=== PATIENT | male | born 1955 | race Caucasian/White ===

== ENCOUNTER 2017-01-08 10:04 | Outpatient (CLI) | payer BC ==
[2017-01-08 10:42] LABS: eGFR (African) > 60; eGFR (Non-African) > 60
== END 2017-01-08 10:05 ==
LOC: LAB 10:04
PROVIDERS: ATTEND Family Medicine
DX: E11.9 Type 2 diabetes mellitus without complications (principal); I10 Essential (primary) hypertension
CPT/HCPCS: 36415; 80053; 80061; 83036

== ENCOUNTER 2017-01-09 07:14 | Outpatient (CLI) | payer BC ==
--- NOTE | 2017-01-09 22:36 | Diagnostic Imaging Report ---
ALEXANDR CHACON~ [facility] [address] [facility].[address] [address] ~ ~ ~ ~ Report Submission Date: Jan 09, 2017 2:27:36 PM CDT Patient ~ Study Name: EVERT CARRENO ~ Date: Jan 09, 2017 9:18:22 AM CDT ~ Modality Type: CT\SR Gender: M ~ Description: CT ABD & PELVIS W/ CON : 51 ~ Institution: [facility] Physician: ALEXANDR CHACON ~ ~ ~ ~ CT of the abdomen and pelvis with contrast Clinical history: ~Diarrhea for 2-3 months. ~Rectal mass on physical exam. Contrast administered: ~92 ml of Omnipaque-300. Technique: ~CT of the abdomen and pelvis is performed with oral and intravenous administration of contrast. ~Sagittal and coronal reconstructions are performed by the technologist. Findings: ~The visualized lung bases are clear. ~Spleen demonstrates normal attenuation without focal defect. ~The liver is hypodense consistent with fatty infiltration. ~The gallbladder is normally distended. ~There is no pancreatic or adrenal abnormality. ~The kidneys demonstrate symmetric enhancement. ~ Vascular calcification is present in the abdominal aorta without evidence of aneurysm. ~The appendix is visualized and is within normal limits. ~Bladder is unremarkable. ~There is thickening of the rectal wall with stranding of the perirectal fat suggesting proctitis. ~There is increased stool in the more proximal colon but no significant distension to suggest obstruction. Impression: 1. ~Rectal wall thickening with stranding in the adjacent fat consistent with proctitis. 2. ~Fatty infiltration of the liver. 3. ~Vascular calcification. 4. ~Negative appendix. ~ Electronically signed on Jan 09, 2017 2:27:36 PM CDT by: Andrzej CARDENAS
== END 2017-01-09 07:15 ==
LOC: RAD 07:14
PROVIDERS: ATTEND Family Medicine
DX: K62.9 Disease of anus and rectum, unspecified (principal)
CPT/HCPCS: 74177; Q9966; A9698

== ENCOUNTER 2017-01-19 12:38 | Day surgery (SDC) | payer BC ==
--- NOTE | 2017-01-19 15:02 | GI Report ---
REFERRING PHYSICIAN: Dr. Axel Ambriz RELIABILITY TECHNICIAN: Lexx Altman MD PROCEDURE MEDICATION: Propofol as per anesthesia. INDICATIONS: This is a 61-year-old man who has had over several months some change in bowel habits and some blood in his stool and pain in the rectum. He has never had his colon looked at before. Family apparently has had colon cancer. He is referred for an evaluation. PROCEDURE PERFORMED: Colonoscopy. PROCEDURE: On rectal exam, the patient has a hard circumferential mass right down to the anal sphincter. An Olympus video colonoscope was advanced through the anal canal but he has got almost complete obstruction and the colonoscope could not pass the mass. We did take biopsies for pathology. RECOMMENDATIONS: 1. He needs a referral to colorectal surgeon. 2. He may need preoperative chemoradiation to shrink this mass pending the tumor type. 3. Again, incomplete colonoscopy because of obstruction in the rectum. cc: Dr. Axel CARDENAS
== END 2017-01-19 12:40 ==
LOC: OPSURG 12:38
PROVIDERS: ATTEND Internal Medicine Gastroenterology
DX: K62.89 Other specified diseases of anus and rectum (principal); C20 Malignant neoplasm of rectum
CPT/HCPCS: 45380; 88341; J2001; J2704; J7120; S1016

== ENCOUNTER 2017-11-07 11:35 | Emergency (ER) | payer BC, OTHER ==
[2017-11-07] MEDS ORDERED: ADENOSINE 6 MG/2 ML VIAL IVP ONE ×4 (11:38→11:52)
[2017-11-07] MEDS ORDERED: 0.9 % SODIUM CHLORIDE 1,000 ML IV ONE (11:38)
[2017-11-07] MEDS ORDERED: PROPRANOLOL HCL 20 MG TABLET PO SCH (12:00)
[2017-11-07] MEDS ORDERED: PROPRANOLOL HCL 20 MG TABLET PO ONE (12:04)
[2017-11-07 12:11] LABS: BASOPHILS % 0.4 (0.0-1.5); EOSINOPHILS % 0.5 % (0.0-6.8); MEAN CORPUSCULAR HEMOGLOBIN 28.5 pg (28.0-34.0); MEAN CORPUSCULAR VOLUME 91.3 fl (80.0-100.0); MONOCYTES % 7.9 % (0.0-11.0); NEUTROPHILS # 4.4 # k/uL (1.4-7.7)
[2017-11-07 12:18] LABS: eGFR (African) > 60; eGFR (Non-African) > 60
--- NOTE | 2017-11-07 13:05 | ED Physician Documentation ---
General Adult - HISTORIAN Historian: patient, child - HPI Stated Complaint: rapid heart rate Chief Complaint: General Adult Additional Information: pt in w/ SVT aT 223 BPM ONSET 2300HRS LAST NOCT HAS HAD BeFORE-ON rhymolol 225 bid-did not take it this am. converted w/ andnosine 12mg to sinus rhythm. dednies chest pain sob or other c/o. except arrythmia-but has to check carotid pulse to determine. Onset: days ago (0 last noct) Timing: still present Severity: mild Further Comments: yes (has stage 4 rectal cancer and odilon chemo tx) - ROS CONST: no problems EYES/ENT: denies: problems with vision CVS/RESP: none. denies: chest pain, shortness of breath, cough GI/: denies: abdominal pain MS/SKIN/LYMPH: none NEURO/PSYCH: denies: headache, fainting - PAST HX Past History: other (st 4 rectal cancer prev diabetes prev SVT) Allergies/Adverse Reactions: Allergies Allergy/AdvReac Type Severity Reaction Status Date / Time aspirin Allergy Verified 11/07/17 11:49 ibuprofen Allergy Verified 11/07/17 11:49 - SOCIAL HX Smoking History: non-smoker Alcohol Use: none Drug Use: none - FAMILY HX Family History: No - VITAL SIGNS Vital Signs: Vital Signs Temp Pulse Resp BP Pulse Ox 98.1 F 220 H 20 97/66 98 11/07/17 11:35 11/07/17 11:35 11/07/17 11:35 11/07/17 11:35 11/07/17 11:35 - REVIEWED ASSESSMENTS Nursing Assessment Reviewed: Yes Vitals Reviewed: Yes ED Results Lab/Radiology - Lab Results Lab Results: Lab Results 11/07/17 11/07/17 11/07/17 12:00 12:00 12:00 WBC 6.50 K/ul K/ul (4.00-12.00) RBC 3.91 M/ul M/ul (3.90-5.20) Hgb 11.1 g/dL L g/dL (12.0-18.0) Hct 35.8 % L % (37.0-53.0) MCV 91.3 fl fl (80.0-100.0) MCH 28.5 pg pg (28.0-34.0) MCHC 31.2 g/dL g/dL (30.0-36.0) RDW 17.0 % H % (11.3-14.3) Plt Count 171 K/mm3 K/mm3 (130-400) Neut % (Auto) 68.9 % % (39.0-79.0) Lymph % (Auto) 20.1 % % (16.0-50.0) [place] % (Auto) 7.9 % % (0.0-11.0) Eos % (Auto) 0.5 % % (0.0-6.8) Baso % (Auto) 0.4 (0.0-1.5) Neut # (Auto) 4.4 # k/uL # k/uL (1.4-7.7) Lymph # (Auto) 1.3 # k/uL # k/uL (0.6-4.0) [place] # (Auto) 0.5 # k/uL # k/uL (0.0-0.9) Eos # (Auto) 0.0 # k/uL # k/uL (0.0-0.6) Baso # (Auto) 0.0 # k/uL # k/uL (0.0-0.5) Reactive Lymphs % 2.2 % % (0.0-5.0) Reactive Lymphs # 0.2 # k/uL # k/uL (0.0-0.8) Sodium 140 mmol/L mmol/L (136-145) Potassium 4.1 mmol/L mmol/L (3.5-5.1) Chloride 97 mmol/L L mmol/L (98-107) Carbon Dioxide 27 mmol/L mmol/L (22-30) BUN 10 mg/dL mg/dL (9-20) Creatinine 1.00 mg/dL mg/dL (0.66-1.25) Estimated Creat Clear 81 Est GFR ( Amer) > 60 (60 - ) Est GFR (Non-Af Amer) > 60 (60 - ) Glucose 137 mg/dL H mg/dL (74-106) Calcium 9.4 mg/dL mg/dL (8.4-10.2) Total Bilirubin 0.6 mg/dL mg/dL (0.2-1.3) AST 29 U/L U/L (15-46) ALT 19 U/L U/L (13-69) Alkaline Phosphatase 93 U/L U/L (38-126) Troponin I 0.08 ng/mL H ng/mL (0.03-0.06) Total Protein 6.8 g/dL g/dL (6.3-8.2) Albumin 3.8 g/dL g/dL (3.5-5.0) - Orders Orders: ED Orders Category Date Time Status CBC/PLATELET/DIFF Routine Lab 11/07/17 12:00 Completed CMP Routine Lab 11/07/17 12:00 Completed TROPONIN I (cTnI) Stat Lab 11/07/17 12:00 Completed 0.9 % Sodium Chloride [Normal Saline] 1,000 ml Med 11/07/17 11:38 Discontinued IV .STK-MED Adenosine [Adenocard] Med 11/07/17 11:38 Discontinued 12 mg IVP .STK-MED ONE Adenosine [Adenocard] Med 11/07/17 11:52 Discontinued 12 mg IVP STAT ONE Adenosine [Adenocard] Med 11/07/17 11:42 Discontinued 6 mg IVP .STK-MED ONE Adenosine [Adenocard] Med 11/07/17 11:40 Discontinued 6 mg IVP STAT ONE Propranolol HCl [Inderal] Med 11/07/17 12:00 Ordered 20 mg PO DAILY Oxygen Daily Oxygen 11/07/17 12:00 Ordered EKG WITH COMPARISON Stat Ther 11/07/17 Stop Req EKG WITH COMPARISON Stat Ther 11/07/17 11:53 Ordered General Adult Physical Exam - PHYSICAL EXAM GENERAL APPEARANCE: no distress EENT: eye inspection normal NECK: normal inspection. No: carotid bruit RESPIRATORY: no resp distress, breath sounds normal CVS: tachycardia. No: reg rate & rhythm ABDOMEN: soft, non-tender SKIN: warm/dry, normal color. No: cyanosis, diaphoresis, jaundice, mottled EXTREMITIES: non-tender, normal range of motion, no evidence of injury, no edema NEURO: oriented X3, motor nml, sensation nml, mood/affect nml Discharge Clincal Impression: supra ventricular tachycardia, st 4 rectal cancer Referrals: Axel Ambriz MD [Primary Care Provider] - 2 Days Comments: svt converted w/ 12 mg adenosine o- pt rem asymptomatic-had sl rise in troponin- called DR MCCALL [facility] suggested no furthur tx till crys see cardiologists- continue RHYTHMOL et other meds. rec f/u w/ vice principal next 2-3 days-gave DR HAIRSTON phone no. had prev card but insurance req [facility] Condition: Good Disposition: 01 HOME, SELF-CARE Decision to Admit: NO Decision Time: 13:18
[2017-11-07 13:16] VITALS: BP 137/79
== END 2017-11-07 13:14 | disposition home or self-care (01) ==
LOC: ED 11:35
DX: I47.1 Supraventricular tachycardia (principal); C18.9 Malignant neoplasm of colon, unspecified; Z92.21 Personal history of antineoplastic chemotherapy
CPT/HCPCS: 80053; 84484; 85025; 93005; J0153; J7030; 96365; 96375; 96376; 99283; S1016

== ENCOUNTER 2018-01-31 12:20 | Emergency (ER) | payer BC, OTHER ==
[2018-01-31 12:38] VITALS: BP 127/67
--- NOTE | 2018-01-31 12:49 | ED Physician Documentation ---
Abdominal Pain - HISTORIAN Historian: patient - HPI Stated Complaint: Abdominal Pain Chief Complaint: Abdominal Pain Additonal Information: genl abd pain. 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 did not follow w/xs water. will eval use xtra mg citrate /water if no evid obstruction Onset: days ago (progressive past few) Duration: waxing, waning Timing: worse Context: denies: out of country travel, bad food, recent trauma Severity: moderate Quality: pain, cramping Associated Symptoms: denies: diarrhea, bloody stools, loss of appetite, chest pain Exacerbated by: food - ROS CONST: other (as above) GI/: constipation, dark urine. denies: black stools, bloody urine, bloody stools CVS/RESP: none MS/SKIN/LYMPH: none. denies: leg swelling, rash, swollen glands, recent injury NEURO/PSYCH: none - SOCIAL HX Smoking History: non-smoker Alcohol Use: none Drug Use: none - FAMILY HX Family History: no significant history - PAST HX Past History: other (colo/rectal cancer) Ischemic Bowel Risk Factors: none Other History: none (except wt loss from 210 to 160lbs) Surgeries/Procedures: other (has port) Home Medications: Ambulatory Orders Medication Instructions Recorded Citalopram Hydrobromide 20 mg PO DAILY 01/31/18 [Citalopram HBr] Gabapentin [Gabapentin] 100 mg pe PO TID 01/31/18 Morphine Sulfate [Morphabond ER] 60 mg PO Q12H 01/31/18 Morphine Sulfate [Morphine Sulfate] 30 mg PO Q4H PRN 01/31/18 Pantoprazole Sodium 40 mg PO DAILY 01/31/18 Propafenone HCl [Propafenone HCl 225 mg PO BID 01/31/18 ER] Tamsulosin HCl [Flomax] 0.4 mg PO DAILY 01/31/18 Allergies/Adverse Reactions: Allergies Allergy/AdvReac Type Severity Reaction Status Date / Time aspirin Allergy Verified 11/07/17 11:49 ibuprofen Allergy Verified 11/07/17 11:49 - VITAL SIGNS Vital Signs: Vital Signs Temp Pulse Resp BP Pulse Ox 98.1 F 92 H 18 127/67 98 01/31/18 14:25 01/31/18 14:25 01/31/18 14:25 01/31/18 14:25 01/31/18 12:20 - REVIEWED ASSESSMENTS Nursing Assessment Reviewed: Yes Vitals Reviewed: Yes ED Results Lab/Radiology - Lab Results Lab Results: Lab Results 01/31/18 13:19 WBC 7.90 K/ul K/ul (4.00-12.00) RBC 4.09 M/ul M/ul (3.90-5.20) Hgb 11.3 g/dL L g/dL (12.0-18.0) Hct 36.2 % L % (37.0-53.0) MCV 88.6 fl fl (80.0-100.0) MCH 27.7 pg L pg (28.0-34.0) MCHC 31.3 g/dL g/dL (30.0-36.0) RDW 16.8 % H % (11.3-14.3) Plt Count 295 K/mm3 K/mm3 (130-400) Neut % (Auto) 80.2 % H % (39.0-79.0) Lymph % (Auto) 9.8 % L % (16.0-50.0) [place] % (Auto) 5.2 % % (0.0-11.0) Eos % (Auto) 2.7 % % (0.0-6.8) Baso % (Auto) 0.8 (0.0-1.5) Neut # (Auto) 6.4 # k/uL # k/uL (1.4-7.7) Lymph # (Auto) 0.8 # k/uL # k/uL (0.6-4.0) [place] # (Auto) 0.4 # k/uL # k/uL (0.0-0.9) Eos # (Auto) 0.2 # k/uL # k/uL (0.0-0.6) Baso # (Auto) 0.1 # k/uL # k/uL (0.0-0.5) Reactive Lymphs % 1.3 % % (0.0-5.0) Reactive Lymphs # 0.1 # k/uL # k/uL (0.0-0.8) - Radiology Radiology Impressions: ac abd= massive constipation no chanell obst=---radiologists agrees. there is massive chunk feces ulq abd. pt has go lytely at home non diluted yet--will use this then metamucil plus xs water w/it - Orders Orders: ED Orders Category Date Time Status ABD SERIES PA CHEST [RAD] Stat Exams 01/31/18 Completed CBC/PLATELET/DIFF Routine Lab 01/31/18 13:19 Completed Acetaminophen [Tylenol] Med 01/31/18 12:44 Discontinued 650 mg PO NOW ONE Abdominal Pain Physical Exam - Physical Exam General Appearance: mild distress, moderate distress EENT: eye inspection normal NECK: normal inspection RESPIRATORY: no resp distress CVS: reg rate & rhythm ABDOMEN: tenderness (very mild on lt-no guarding or grimmacing) SKIN: warm/dry, normal color. No: cyanosis, diaphoresis, jaundice EXTREMITIES: non-tender, normal range of motion, no evidence of injury NEURO: oriented X3, motor nml, sensation nml, mood/affect nml Vital Signs: Vital Signs Temp Pulse Resp BP Pulse Ox 98.1 F 92 H 18 127/67 98 01/31/18 14:25 01/31/18 14:25 01/31/18 14:25 01/31/18 14:25 01/31/18 12:20 Discharge Clincal Impression: un dx abd pain suspect constipation, colorectal cancer w/mets bone lung Referrals: Axel Ambriz MD [Primary Care Provider] - 2 Days Comments: pt has golytely at home will use that-then rted if not cleaned out and normal bowel activity Condition: Good Disposition: 01 HOME, SELF-CARE Decision to Admit: NO Decision Time: 14:15
[2018-01-31] MEDS: ACETAMINOPHEN 325 MG TABLET PO ONE (13:00)
[2018-01-31 13:24] LABS: BASOPHILS % 0.8 (0.0-1.5); EOSINOPHILS % 2.7 % (0.0-6.8); MEAN CORPUSCULAR HEMOGLOBIN 27.7 pg (28.0-34.0); MEAN CORPUSCULAR VOLUME 88.6 fl (80.0-100.0); MONOCYTES % 5.2 % (0.0-11.0); NEUTROPHILS # 6.4 # k/uL (1.4-7.7)
--- NOTE | 2018-01-31 13:29 | Diagnostic Imaging Report ---
GIUSEPPE MCCARTY [facility] [address] [facility] [address] [address] Report Submission Date: January 31, 2018 1:11:00 PM CDT Patient Study Name: EVERT CARRENO Date: January 31, 2018 12:46:12 PM CDT Modality Type: DX Gender: M Description: CHEST,ABDOMEN : 51 Institution: [facility] Physician: GIUSEPPE MCCARTY Examination: Obstruction series History: ABDOMINAL PAIN, PT STATES FREQUENT CONSTIPATION DUE TO MORPHINE (Hx) Findings: 4 views obtained of the chest and abdomen. No abnormal dilation of the large or small bowel. Significant stool throughout the large bowel. No focal infiltrate process. Right-sided sarita cath. Osseous structures demonstrate degenerative changes. Impression: Significant large bowel stool - constipation. No focal infiltrate/effusion. Electronically signed on January 31, 2018 1:11:00 PM CDT by: Anderson CARDENAS
== END 2018-01-31 14:25 | disposition home or self-care (01) ==
LOC: ED 12:20
DX: R10.84 Generalized abdominal pain (principal); C18.9 Malignant neoplasm of colon, unspecified; C79.51 Secondary malignant neoplasm of bone; C34.90 Malignant neoplasm of unspecified part of unspecified bronchus or lung
CPT/HCPCS: 74022; 85025

== ENCOUNTER 2018-02-03 23:31 | Emergency (ER) | payer OTHER ==
[2018-02-04 00:11] LABS: eGFR (African) > 60; eGFR (Non-African) > 60
[2018-02-04 00:14] LABS: BASOPHILS % 0.4 (0.0-1.5); EOSINOPHILS % 2.1 % (0.0-6.8); MEAN CORPUSCULAR HEMOGLOBIN 27.5 pg (28.0-34.0); MEAN CORPUSCULAR VOLUME 87.2 fl (80.0-100.0); MONOCYTES % 7.8 % (0.0-11.0)
--- NOTE | 2018-02-04 01:08 | ED Physician Documentation ---
General Adult - HISTORIAN Historian: patient, paramedics - HPI Stated Complaint: rapid heart rate Chief Complaint: General Adult Additional Information: Rapid heart rate intermittently today. Became consistent this evening and EMS called. Given 6 mg adenosine in transit and SVT resolved. Has had known SVT since 19 y/o. Late into ER visit, says he fell onto carpeted bedroom floor this am when he passed out. He blames this on rapid intermittent heart rate. He had tried to walk to bathroom. Left shoulder sore and he says he has rug nichols. Denies other discomfort in ER. No CP. Has colon cancer with mets and will sign papers for Hospice on February 08. - ROS CONST: denies: fever - PAST HX Past History: other (above) Allergies/Adverse Reactions: Allergies Allergy/AdvReac Type Severity Reaction Status Date / Time aspirin Allergy Verified 11/07/17 11:49 ibuprofen Allergy Verified 11/07/17 11:49 Home Medications: Ambulatory Orders Medication Instructions Recorded Citalopram Hydrobromide 20 mg PO DAILY 01/31/18 [Citalopram HBr] Gabapentin [Gabapentin] 100 mg pe PO TID 01/31/18 Morphine Sulfate [Morphabond ER] 60 mg PO Q12H 01/31/18 Morphine Sulfate [Morphine Sulfate] 30 mg PO Q4H PRN 01/31/18 Pantoprazole Sodium 40 mg PO DAILY 01/31/18 Propafenone HCl [Propafenone HCl 225 mg PO BID 01/31/18 ER] Tamsulosin HCl [Flomax] 0.4 mg PO DAILY 01/31/18 LORazepam [Ativan] 0.5 mg PO PRN PRN 02/04/18 - SOCIAL HX Smoking History: non-smoker - FAMILY HX Family History: No - VITAL SIGNS Vital Signs: Vital Signs Temp Pulse Resp BP Pulse Ox 127/67 01/31/18 14:25 - REVIEWED ASSESSMENTS Nursing Assessment Reviewed: Yes Vitals Reviewed: Yes Progress - Progress Progress: Patient Study Name: EVERT CARRENO Date: February 04, 2018 1:03:53 AM CDT Modality Type: DX Gender: M Description: SHOULDER : 51 Institution: [facility] Physician: SANDOVAL CARLOS - ER Left shoulder and scapula Clinical history pain Technique AP and right shoulder AP left shoulder scapular Y left shoulder Findings: There is a fracture of the distal left clavicle. Glenohumeral joint degenerative arthritis is present bilaterally. Report overlying the right chest. Acromioclavicular joint arthritis is present bilaterally. Impression: Fracture the distal left clavicle No scapular fractures identified Electronically signed on February 04, 2018 1:37:26 AM CDT by: Arturo Vickers ED Results Lab/Radiology - Lab Results Lab Results: Lab Results 02/03/18 02/03/18 02/03/18 00:10 00:10 00:10 WBC 8.00 K/ul K/ul (4.00-12.00) RBC 3.79 M/ul L M/ul (3.90-5.20) Hgb 10.4 g/dL L g/dL (12.0-18.0) Hct 33.0 % L % (37.0-53.0) MCV 87.2 fl fl (80.0-100.0) MCH 27.5 pg L pg (28.0-34.0) MCHC 31.5 g/dL g/dL (30.0-36.0) RDW 16.8 % H % (11.3-14.3) Plt Count 354 K/mm3 K/mm3 (130-400) Neut % (Auto) 75.2 % % (39.0-79.0) Lymph % (Auto) 13.3 % L % (16.0-50.0) [place] % (Auto) 7.8 % % (0.0-11.0) Eos % (Auto) 2.1 % % (0.0-6.8) Baso % (Auto) 0.4 (0.0-1.5) Neut # (Auto) 6.0 # k/uL # k/uL (1.4-7.7) Lymph # (Auto) 1.1 # k/uL # k/uL (0.6-4.0) [place] # (Auto) 0.6 # k/uL # k/uL (0.0-0.9) Eos # (Auto) 0.2 # k/uL # k/uL (0.0-0.6) Baso # (Auto) 0.0 # k/uL # k/uL (0.0-0.5) Reactive Lymphs % 1.2 % % (0.0-5.0) Reactive Lymphs # 0.1 # k/uL # k/uL (0.0-0.8) Sodium 132 mmol/L L mmol/L (136-145) Potassium 3.6 mmol/L mmol/L (3.5-5.1) Chloride 96 mmol/L L mmol/L (98-107) Carbon Dioxide 25 mmol/L mmol/L (22-30) BUN 12 mg/dL mg/dL (9-20) Creatinine 0.60 mg/dL L mg/dL (0.66-1.25) Est GFR ( Amer) > 60 (60 - ) Est GFR (Non-Af Amer) > 60 (60 - ) Glucose 104 mg/dL mg/dL (74-106) Calcium 8.8 mg/dL mg/dL (8.4-10.2) Total Bilirubin 0.4 mg/dL mg/dL (0.2-1.3) AST 33 U/L U/L (15-46) ALT 21 U/L U/L (13-69) Alkaline Phosphatase 106 U/L U/L (38-126) Troponin I < 0.03 ng/mL L ng/mL (0.03-0.06) Total Protein 6.7 g/dL g/dL (6.3-8.2) Albumin 3.2 g/dL L g/dL (3.5-5.0) - Orders Orders: ED Orders Category Date Time Status Continuous EKG monitoring Q1H Care 02/03/18 23:58 Active BILAT SCAPULA [RAD] Stat Exams 02/04/18 Ordered CBC/PLATELET/DIFF Routine Lab 02/03/18 00:10 Completed CMP Routine Lab 02/03/18 00:10 Completed TROPONIN I (cTnI) Stat Lab 02/03/18 00:10 Completed URINALYSIS Routine Lab 02/03/18 Ordered EKG WITH COMPARISON Stat Ther 02/03/18 Ordered General Adult Physical Exam - PHYSICAL EXAM GENERAL APPEARANCE: thin EENT: eye inspection normal, ENT inspection normal, pharynx normal NECK: normal inspection, supple RESPIRATORY: breath sounds normal CVS: reg rate & rhythm, heart sounds normal ABDOMEN: normal bowel sounds BACK: other (tender to palpation over left scapula) SKIN: warm/dry, normal color, other (superficial abrasion right distal thorax) NEURO: CN's nml as tested, motor nml, other (occasional, frequent facial tic) Discharge Clincal Impression: SVT (supraventricular tachycardia) Clavicle fracture Qualifiers: Encounter type: initial encounter Clavicle location: lateral end Fracture type : closed Fracture alignment: nondisplaced Laterality: left Qualified Code(s): S42.035A - Nondisplaced fracture of lateral end of left clavicle, initial encounter for closed fracture Referrals: Axel Ambriz MD [Primary Care Provider] - 2 Days Condition: Fair Disposition: 01 HOME, SELF-CARE Decision to Admit: NO Decision Time: 02:45
--- NOTE | 2018-02-04 02:51 | Diagnostic Imaging Report ---
SANDOVAL CARLOS [facility] [address] [facility] [address] [address] Report Submission Date: February 04, 2018 1:37:26 AM CDT Patient Study Name: EVERT CARRENO Date: February 04, 2018 1:03:53 AM CDT Modality Type: DX Gender: M Description: SHOULDER : 51 Institution: [facility] Physician: SANDOVAL CARLOS Left shoulder and scapula Clinical history pain Technique AP and right shoulder AP left shoulder scapular Y left shoulder Findings: There is a fracture of the distal left clavicle. Glenohumeral joint degenerative arthritis is present bilaterally. Report overlying the right chest. Acromioclavicular joint arthritis is present bilaterally. Impression: Fracture the distal left clavicle No scapular fractures identified Electronically signed on February 04, 2018 1:37:26 AM CDT by: Arturo CARDENAS
[2018-02-04 03:19] VITALS: BP 121/67
== END 2018-02-04 03:00 | disposition home or self-care (01) ==
LOC: ED 23:31
DX: S42.035A Nondisplaced fracture of lateral end of left clavicle, initial encounter for closed fracture (principal); W19.XXXA Unspecified fall, initial encounter; Y92.003 Bedroom of unspecified non-institutional (private) residence as the place of occurrence of the external cause; Y93.9 Activity, unspecified; Y99.9 Unspecified external cause status
CPT/HCPCS: 36415; 80053; 84484; 85025

== ENCOUNTER 2018-03-09 10:52 | Inpatient (IN) | payer SELFPAY ==
[2018-03-10 08:40] LABS: APPEARANCE,URINE CLEAR (CLEAR); COLOR,URINE YELLOW (YELLOW); OCCULT BLOOD,URINE NEGATIVE (NEGATIVE); PH URINE 6.5 (5.0 - 8.0)
[2018-03-11] MEDS ORDERED: LIDOCAINE Urojet 5 ML JEL MM ONE (12:00)
== END 2018-04-01 18:06 | disposition expired | DRG 951 ==
LOC: UNDOADMIN 10:52 → ICF 10:52
PROVIDERS: ADMIT Family Medicine; ATTEND Family Medicine
DX: Z51.5 Encounter for palliative care (principal); C79.9 Secondary malignant neoplasm of unspecified site
CPT/HCPCS: 81002; 87086